=== PATIENT | female | born 1945 | race African-American/Black ===

== ENCOUNTER 2019-01-10 08:26 | Emergency (ER) | payer MEDICARE, OTHER ==
[2019-01-10 08:35] VITALS: BP 144/67
--- NOTE | 2019-01-10 09:22 | ER Document Report ---
ED Medical Screen (RME) - General Chief Complaint: FB in throat Stated Complaint: SORE THROAT Time Seen by Provider: 01/10/19 09:11 Primary Care Provider: KASH GUADALUPE MD [Primary Care Provider] - Follow up as needed Notes: Patient is a 73-year-old female presents emergency department with a chief complaint of a "sore throat.". Patient states that she was eating a piece of cheese yesterday and she feels like there was a small piece of plastic on the cheese and she feels like it is stuck on the right side of her neck. She denies any fever, body aches, chills, or any other symptoms. Past medical history includes hypothyroidism. Exam: No foreign body noted in oropharynx. Tenderness to right anterior neck. I have greeted and performed a rapid initial assessment of this patient. A comprehensive ED assessment and evaluation of the patient, analysis of test results and completion of medical decision making process will be conducted by an additional ED providers. TRAVEL OUTSIDE OF THE [place] IN LAST 30 DAYS: No - Related Data Allergies/Adverse Reactions: No Known Allergies Allergy (Verified 01/10/19 09:04) Past Medical History - Social History Chew tobacco use (# tins/day): No Frequency of alcohol use: None Drug Abuse: None Physical Exam - Vital signs Vitals: Temp Pulse Resp BP Pulse Ox 97.5 F 64 16 144/67 H 100 01/10/19 08:34 01/10/19 08:34 01/10/19 08:34 01/10/19 08:34 01/10/19 08:34 Course - Vital Signs Vital signs: Temp Pulse Resp BP Pulse Ox 97.5 F 64 16 144/67 H 100 01/10/19 08:34 01/10/19 08:34 01/10/19 08:34 01/10/19 08:34 01/10/19 08:34 Doctor's Discharge - Discharge Referrals: KASH GUADALUPE MD [Primary Care Provider] - Follow up as needed
--- NOTE | 2019-01-10 10:16 | ER Document Report ---
ED General - General Chief Complaint: FB in throat Stated Complaint: SORE THROAT Time Seen by Provider: 01/10/19 09:11 Primary Care Provider: KASH GUADALUPE MD [ACTIVE STAFF] - Follow up as needed TRAVEL OUTSIDE OF THE [place] IN LAST 30 DAYS: No - HPI Notes: Patient is a 73-year-old female with a history of hypothyroidism who presents complaining of foreign body sensation of the right side of her throat after eating cheesecake yesterday. Patient states that she believes there is a piece of plastic in it as there was a plastic component that they had to cut the cake out of. Patient states that she had the sensation of something in her throat immediately after eating the cheesecake. She is otherwise swallowing without difficulty. She is urinating normally and having normal bowel movements. Denies drug allergies. No other concerns or complaints. Denies any headache, fever, drooling, hoarseness, URI, sore throat, chest pain, palpitations, syncope, cough, shortness of breath, wheeze, dyspnea, abdominal pain, nausea/vomiting/diarrhea, urinary retention, dysuria, hematuria, or rash. - Related Data Allergies/Adverse Reactions: No Known Allergies Allergy (Verified 01/10/19 09:04) Past Medical History - Social History Smoking Status: Never Smoker Chew tobacco use (# tins/day): No Frequency of alcohol use: None Drug Abuse: None Family History: Reviewed & Not Pertinent Patient has suicidal ideation: No Patient has homicidal ideation: No Review of Systems - Review of Systems -: Yes All other systems reviewed and negative Physical Exam - Vital signs Vitals: Temp Pulse Resp BP Pulse Ox 97.5 F 64 16 144/67 H 100 01/10/19 08:34 01/10/19 08:34 01/10/19 08:34 01/10/19 08:34 01/10/19 08:34 - Notes Notes: PHYSICAL EXAMINATION: GENERAL: Well-appearing, well-nourished and in no acute distress. A&Ox4. A nswers questions appropriately. Moves comfortably w/o notable distress HEAD: Atraumatic, normocephalic. EYES: Pupils equal round and reactive to light, extraocular movements intact, sclera anicteric, conjunctiva are normal. ENT: EAC clear b/l. TM's intact b/l without erythema, fluid, or perforation. Nares patent and with clear discharge. oropharynx no erythema without exudates. no tonsilar hypertrophy without erythema no exudate. No palatine shift. Uvula midline. No tongue protrusion. No drooling, hoarseness, or airway compromise. Moist mucous membranes. No sinus tenderness. NECK: Normal range of motion, supple without lymphadenopathy. No rigidity/meningismus. LUNGS: Breath sounds clear to auscultation bilaterally and equal. No wheezes rales or rhonchi. No retractions HEART: Regular rate and rhythm without murmurs, rubs, gallops. ABDOMEN: Soft, nontender, nondistended abdomen. No guarding, no rebound. Normal bowel sounds present. No CVA tenderness bilaterally. NEUROLOGICAL: Normal speech, normal gait. PSYCH: Normal mood, normal affect. SKIN: Warm, Dry, normal turgor, no rashes or lesions noted. Course - Re-evaluation Re-evalutation: 01/10/19 11:59 Patient is an afebrile, well-hydrated, 73-year-old female who presents with foreign body sensation in the throat, otherwise benign exam and imaging. Vitals are acceptable without significant tachycardia, tachypnea, or hypoxia. Labs and CT imaging unremarkable. No further work-up warranted. I did review imaging with Dr. Jewell. No meds or treatment warranted at this time as patient is otherwise able to swallow w/o difficulty and aside from very mild foreign body sensation, has no pain. Low suspicion for any meningitis, sepsis, peritonsillar/pharyngeal abscess, airway compromise, Joey's, obstruction, or other emergent systemic condition at this time. Patient is aware this condition can change from initial presentation and she needs to monitor symptoms closely. Conservative measures otherwise for symptoms. Recheck with your PCM in 2-3 days. Consider consult with ENT. Return to the ED with any worsening/concernin g symptoms otherwise as reviewed in discharge. Patient is in agreement. - Vital Signs Vital signs: Temp Pulse Resp BP Pulse Ox 97.5 F 64 16 144/67 H 100 01/10/19 08:34 01/10/19 08:34 01/10/19 08:34 01/10/19 08:34 01/10/19 08:34 - Laboratory Result Diagrams: 01/10/19 10:00 Discharge - Discharge Clinical Impression: Foreign body sensation in throat Condition: Stable Disposition: HOME, SELF-CARE Additional Instructions: Maintain adequate fluid intake Take meds as directed Salt water gargles, throat sprays, mouthwash rinse, peroxide gargles tylenol/ibuprofen as needed over the counter cold medication as needed for symptoms F/u: with your PCM in 2-3 days for a recheck Consider consult with ENT for ongoing/worsening symptoms Return to the ED with any fever, worsening pain, chest pain, neck pain/stiffness, shortness of breath, cough, drooling, trouble swallowing/breathing, abdominal pain, n/v/d, rash, or worsening/concerning symptoms otherwise. Forms: Elevated Blood Pressure Referrals: HIRAM BOONE DO [ASSOCIATE] - Follow up as needed
[2019-01-10 10:33] LABS: ANION GAP 8 (5-19); BLOOD UREA NITROGEN 9 mg/dL (7-20); CALCIUM 9.5 mg/dL (8.4-10.2); CARBON DIOXIDE 28 mmol/L (22-30); CHLORIDE 106 mmol/L (98-107); GLUCOSE 86 mg/dL (75-110); POTASSIUM 4.7 mmol/L (3.6-5.0)
--- NOTE | 2019-01-10 11:56 | RADIOLOGY REPORT (SQ) ---
EXAM DESCRIPTION: CT SOFT TISSUE NECK WITH COMPLETED DATE/TIME: 01/10/2019 11:07 am REASON FOR STUDY: sore throat; eval foreign body COMPARISON: None. TECHNIQUE: Post IV contrasted scanning from skull base through lung apices with review of bone, soft tissue and lung windows. Reconstructed coronal and sagittal MPR images reviewed. All images stored on PACS. All CT scanners at this facility use dose modulation, iterative reconstruction, and/or weight based d osing when appropriate to reduce radiation dose to as low as reasonably achievable (ALARA). [facility]: Dose Right [facility]: CareDose [facility]: Dose Right [facility]: Teradose 4D [facility]: Adeyoh CONTRAST TYPE AND DOSE: 75mL Omnipaque 350 RENAL FUNCTION: Creatinine 0.72 RADIATION DOSE: CT Rad equipment meets quality standard of care and radiation dose reduction techniq ues were employed. CTDIvol: 11.9 mGy. DLP: 405 mGy-cm. mGy. LIMITATIONS: None. FINDINGS: SKULL BASE: Intact. MAJOR SALIVARY GLANDS: No solid or cystic masses. No inflammatory changes. LYMPHADENOPATHY: No adenopathy. MUCOSAL MASSES OR ASYMMETRY: There is a punctate radiodensity within the region of the left palatini tonsil measuring approximately 3 mm (series 3, image 37). There is mild asymmetric soft tissue fulln ess within this region. No evidence of focal drainable collection. LARYNX/CORDS: No abnormal findings. VASCULAR STRUCTURES: Scattered atherosclerotic calcifications at the bilateral carotid bulbs. No foc al high-grade stenosis, dissection or aneurysm. LUNG APICES: Clear. BONES: Intact. THYROID: Normal size. No masses. PARANASAL SINUSES: Clear. OTHER: No other significant finding. IMPRESSION: 1. 3 mm punctate radiodensity within the region of the left palatini tonsil. Findings may represent a soft tissue calcification, tonsillith or foreign body which is felt less likely. Mil d asymmetric soft tissue fullness without focal drainable collection or discrete mass. 2. No other evidence of acute process within the neck. Findings discussed with Aleyda Wilder at 1145 hours on 01/10/2019. TECHNICAL DOCUMENTATION: JOB ID: [id number] RS [id number]: Final reports with documentation of one or more dose reduction techniques (e.g., Automate d exposure control, adjustment of the mA and/or kV according to patient size, use of iterative recons truction technique) 2010 [employer]- All Rights Reserved Reading location - IP/workstation name: [email or web address]
== END 2019-01-10 12:16 | disposition home or self-care (01) ==
LOC: ER 08:26
DX: R09.89 Other specified symptoms and signs involving the circulatory and respiratory systems (principal)
CPT/HCPCS: 36415; 70491; 80048; 99283